=== PATIENT | male | born 1995 ===

== ENCOUNTER 2019-07-05 12:11 | Day surgery (SDC) | payer BC ==
[~2019-07-05 12:11] MED LIST: Buffered Lidocaine 1% SYRIN* 1 ML/SYRINGE INTRADERM ONE; Dexamethasone TAB* 4 MG PO ONE; DiMENhydriNATE IV* 50 MG/ML VIAL IV PUSH PRN; Famotidine IV* 10 MG/ML 2 ML (20 mg) IV ONE; Lactated Ringers 1000 ML Bag* 1,000 ML IV SCH; Naloxone* 0.4 MG/ML 1 ML VIAL IV PRN; Ondansetron ODT TAB* 4 MG PO ONE; PROCHLORPERAZINE INJ 5 MG/ML 2 ML VIAL IV PRN; fentaNYL* 50 MCG/ML 2 ML VIAL (100 MCG VIAL) IV PRN; oxyCODONE/Acetamin 5/325 MG* TAB PO PRN
[2019-07-05] MEDS ORDERED: KETAMINE HCL* 50 MG/ML 10 ML VIAL ONE (12:21)
[2019-07-05] MEDS ORDERED: fentaNYL* 50 MCG/ML 2 ML VIAL (100 MCG VIAL) ONE (12:21)
[2019-07-05] MEDS ORDERED: Midazolam* 1 MG/ML 5 ML VIAL (5 MG) ONE (12:21)
[2019-07-05] MEDS ORDERED: Ondansetron ODT TAB* 4 MG ONE (12:26)
[2019-07-05] MEDS ORDERED: Dexamethasone TAB* 4 MG ONE (12:26)
[2019-07-05] MEDS ORDERED: Famotidine IV* 10 MG/ML 2 ML (20 mg) ONE (12:27)
[2019-07-05] MEDS ORDERED: Lidocaine 1% INJ* 10 MG/ML 30 ML SDV ONE (13:16)
[2019-07-05] MEDS ORDERED: Bupivacaine 0.5% SDV PF* 30ML VIAL ONE (13:16)
[2019-07-05] MEDS ORDERED: Lidocaine 2% PF * 5 ML VIAL ONE (13:47)
[2019-07-05] MEDS ORDERED: Propofol* 10 MG/ML 20 ML BTL ONE (13:47)
[2019-07-05] MEDS ORDERED: Ketorolac INJ* 30 MG/ML 1 ML VIAL ONE (13:47)
[2019-07-05] MEDS ORDERED: Silver Sulfadiazine 1%* 20 GM ONE (14:07)
[2019-07-05 15:16] VITALS: BP 99/63
--- NOTE | 2019-07-05 22:24 | OP ---
DATE OF OPERATION: 07/05/19 [facility] DATE OF : 89 SURGEON: Kaleb Mcfarland DPM. ANESTHESIA: MAC local. PRE-OP DIAGNOSIS: Left foot plantar warts. POST-OP DIAGNOSIS: Left foot plantar warts. OPERATIVE PROCEDURE: CO2 laser ablation and curettage of left foot plantar warts. ESTIMATED BLOOD LOSS: Less than 10 cc. IV FLUIDS: LR 1000 cc. DRAINS: None. SPECIMENS: Excised plantar warts from the left foot. DESCRIPTION OF PROCEDURE: The patient was taken to the operating room and was placed in the supine position. Time-out was called and OR team agreed. The left foot was then blocked with 10 cc of 1% lidocaine plain intralesionally. The foot was then prepped and draped in sterile manner. The left foot was then exsanguinated with Esmarch bandage and the cuff was inflated to 250 mmHg. Attention was then paid to the plantar aspect of the left foot, where there were subtle skin lesion presenting a plantar wart. There were 4 of them noted. One was localized submet 4 posterior plantar and central plantar areas about 4 of them. I went ahead and proceeded to ablate with CO2 laser set at 4 manning in a continuous fashion. Once I ablated the lesions, I went ahead and with a combination of a #15 blade and a Harjit dermal curette. Once I was able to do that, I went all the way down to the papillary layer of the dermis. Once I was able to identify the skin lines, the procedure was then deemed completed. I went ahead and irrigated the site and placed a dry sterile dressing. The wound will be allowed to granulate in as these are superficial wound dermal procedures. Cuff was deflated. The patient was taken to recovery in a stable condition and was later discharged in stable condition as well. [id number]/[facility] #: [id number] [place]
== END 2019-07-05 15:15 | disposition home or self-care (01) ==
LOC: OREAST 12:11
PROVIDERS: ATTEND Podiatrist
DX: B07.0 Plantar wart (principal)
CPT/HCPCS: 88305; A9270-GY; J1885; J2250; J2704; J3010; J3490; J8540